=== PATIENT | male | born 1990 | race Caucasian/White ===

== ENCOUNTER 2019-01-14 15:13 | Emergency (ER) | payer OTHER ==
[~2019-01-14] VITALS: Ht 170.2 cm; Wt 74.8 kg
--- NOTE | 2019-01-14 15:38 | NUR ---
PATIENT BIB [employer], GOT HIT BY HARD THING AT THE BACK OF HIS HEAD THIS MORNING, +KO. PATIENT A/O X 3, NO ACUTE DISTRESS. RESTING ON BED. WILL CONTINUE TO MONITOR
--- NOTE | 2019-01-14 15:43 | NUR ---
URINE COLLECTED AND SENT TO LAB
[2019-01-14] MEDS ORDERED: TDAP [DIPH/PERTUSSIS/TET] 0.5 ML VIAL IM ONE (16:32)
[2019-01-14] MEDS: ACETAMINOPHEN 325 MG TABLET PO ONE (16:32)
[2019-01-14] MEDS ORDERED: ACETAMINOPHEN ES 500 MG TABLET ONE (16:32)
[2019-01-14] MEDS ORDERED: AMOX/CLAVULANATE 875 MG TABLET ONE (16:32)
[2019-01-14] MEDS: AMOX/CLAVULANATE 875 MG TABLET PO ONE (16:32)
[2019-01-14] MEDS: TDAP [DIPH/PERTUSSIS/TET] 0.5 ML VIAL IM ONE (16:33)
--- NOTE | 2019-01-14 17:17 | NUR ---
PATIENT CLEARED BY MD TO DISCHARGE. DISCHARGE INSTRUCTIONS AND EDUCATION PROVIDED AND VERBALIZED UNDERSTANDING. LEFT UNIT AMBULATORY WITH 2 [employer] OFFICERS. NO ACUTE DISTRESSM, DENIES ANY PAIN OR DISCOMFORT. NO NEW SKIN BREAKDOWN. MD AWARE OF DISCHARGE
[2019-01-14 17:19] VITALS: BP 130/80
== END 2019-01-14 17:20 ==
LOC: ER 15:17
DX: S50.872A Other superficial bite of left forearm, initial encounter (principal); S09.8XXA Other specified injuries of head, initial encounter; R51 Headache; Z23 Encounter for immunization; W50.3XXA Accidental bite by another person, initial encounter; Y93.89 Activity, other specified; Y92.89 Other specified places as the place of occurrence of the external cause; Y99.8 Other external cause status
CPT/HCPCS: 70450-TC; 90715